=== PATIENT | male | born 1965 | race Caucasian/White ===

== ENCOUNTER 2020-11-22 12:13 | Emergency (ER) | payer MEDICAID ==
[~2020-11-22] VITALS: Ht 165.1 cm; Wt 74.8 kg
[~2020-11-22 12:13] MED LIST: CYCL10TA79 PO; IBUP-974 PO; TRAM50TA1 PO; [UNRECOGNIZED DRUG - CODE] PO
[2020-11-22 12:15] VITALS: BP 130/63
--- NOTE | 2020-11-22 12:22 | NUR ---
Note [email or web address] in EDM - 11/22/20 at 1235 by [facility] 55 y/o male c/o left thumb pain 02/19 describes as throbbing non-radiating. Pt states he was at home and sliced the top of his thumb on a mud grinder while cutting AC panels X25min ago. Pt denies being on blood thinners, not active bleeding. Denies N/V, denies fever/chills. PMH: HTN NKA
--- NOTE | 2020-11-22 12:25 | NUR ---
PATIENT AMBULATED TO BED 7.
--- NOTE | 2020-11-22 12:25 | NUR ---
Patient to bed 7. RN evaluating the patient at bedside.
--- NOTE | 2020-11-22 12:26 | NUR ---
55 y/o male c/o left thumb pain 02/19 describes as throbbing non-radiating. Pt states he was at home and sliced the top of his thumb on a soap grinder while cutting AC panels X25min ago. Pt denies being on blood thinners, not active bleeding. Denies N/V, denies fever/chills. PMH: HTN NKA
--- NOTE | 2020-11-22 12:32 | NUR ---
technical engineer at bedside.
--- NOTE | 2020-11-22 12:51 | NUR ---
Dr. Mcknight is evaluating the patient at bedside.
[2020-11-22] MEDS ORDERED: LIDOCAINE MPF 1% 10 MG/ML VIAL INJ ONE (13:10)
[2020-11-22] MEDS ORDERED: levoFLOXacin 500 MG TAB PO ONE (13:45)
--- NOTE | 2020-11-22 13:50 | NUR ---
APPLIED DRESSING AND FINGER SPLINT TO LEFT THUMB WITHOUT ANY ISSUES
[2020-11-22 14:10] VITALS: BP 130/63
--- NOTE | 2020-11-22 14:10 | NUR ---
Patient discharged with v/s stable. Written and verbal after care instructions given and explained. Patient verbalized understanding. Ambulatory with steady gait. All questions addressed prior to discharge. Advised to follow up with PMD.
== END 2020-11-22 14:10 | disposition home or self-care (01) ==
LOC: MED 12:13
DX: S61.012A Laceration without foreign body of left thumb without damage to nail, initial encounter (principal); W26.8XXA Contact with other sharp object(s), not elsewhere classified, initial encounter; Y93.89 Activity, other specified; Y92.89 Other specified places as the place of occurrence of the external cause; Y99.8 Other external cause status
CPT/HCPCS: 12002; 73130; 90471; 90715; 99283; J2001

== ENCOUNTER 2021-04-11 16:15 | Emergency (ER) | payer MEDICAID ==
[~2021-04-11] VITALS: Ht 164.6 cm; Wt 78.9 kg
[2021-04-11 16:35] VITALS: BP 116/86
[2021-04-11] MEDS ORDERED: ACETAMINOPHEN EXTRA STRENGTH 500 MG TAB PO ONE (17:05)
[2021-04-11] MEDS ORDERED: IBUP-2213 PO (18:09)
[2021-04-11] MEDS ORDERED: CYCL-711 PO (18:09)
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
[2021-04-11 18:18] VITALS: BP 116/86
--- NOTE | 2021-04-11 18:18 | NUR ---
Patient discharged with v/s stable. Written and verbal after care instructions given and explained. Patient alert, oriented and verbalized understanding of instructions. Ambulatory with steady gait. All questions addressed prior to discharge. ID band removed. Patient advised to follow up with PMD. Rx of FLEXERIL, IBURPOFEN given. Patient educated on indication of medication including possible reaction and side effects. Opportunity to ask questions provided and answered.
== END 2021-04-11 18:18 | disposition home or self-care (01) ==
LOC: MED 16:15
DX: S16.1XXA Strain of muscle, fascia and tendon at neck level, initial encounter (principal); R51.9 Headache, unspecified; I10 Essential (primary) hypertension; Z79.899 Other long term (current) drug therapy; X58.XXXA Exposure to other specified factors, initial encounter; Y93.89 Activity, other specified; Y92.89 Other specified places as the place of occurrence of the external cause; Y99.8 Other external cause status
CPT/HCPCS: 99283